=== PATIENT | male | born 2000 | race Two or more races ===

== ENCOUNTER 2021-06-19 22:10 | Inpatient (IN) | payer MEDICAID ==
[~2021-06-19] VITALS: Ht 175.3 cm; Wt 66.0 kg
--- NOTE | 2021-06-19 22:31 | NUR ---
PT ROOMED IN BED 14,. ASSUMED CARE OF PT
[2021-06-19 22:41] LABS: CLARITY,URINE CLEAR (Clear); COLOR,URINE YELLOW (Yellow); GLUCOSE, URINE NEGATIVE (Neg); KETONES,URINE NEGATIVE (Neg); LEUKOCYTE ESTERASE ,URINE NEGATIVE (Neg); NITRITES, URINE NEGATIVE (Neg); OCCULT BLOOD,URINE TRACE-LYSED (Neg); PROTEIN,URINE NEGATIVE (Neg); UROBILINOGEN,URINE 0.2 E.U/dL (0.2-1.0)
[2021-06-19 22:43] LABS: BASOPHILS % (AUTO) 0.4 % (0-1); EOSINOPHILS # (AUTO) 0.1 X10'3 (0-0.9); EOSINOPHILS % (AUTO) 0.9 % (0-6); HEMATOCRIT 45.3 % (42.0-52.0); HEMOGLOBIN 15.5 g/dl (14.0-17.9); LYMPHOCYTES # (AUTO) 1.1 X10'3 (1.1-4.8); LYMPHOCYTES % (AUTO) 11.2 % (21-51); MEAN CORPUSCULAR HEMOGLOBIN 30.3 PG (27.0-31.0); MEAN CORPUSCULAR HGB CONC 34.2 g/dL (33.0-36.5); MEAN CORPUSCULAR VOLUME 88.5 FL (78-98); MEAN PLATELET VOLUME 8.3 FL (7.4-10.4); MONOCYTES % (AUTO) 10.4 % (2-12); NEUTROPHILS # (AUTO) 7.6 X10'3 (1.8-7.7); NEUTROPHILS % (AUTO) 77.1 % (42-75); PLATELET COUNT 214 X10'3 (140-440); RED BLOOD COUNT 5.12 X10'6 (4.70-6.10); RED CELL DISTRIBUTION WIDTH 12.8 % (11.5-14.5); WHITE BLOOD COUNT 9.9 X10'3 (4.5-11.0)
[2021-06-19 22:48] LABS: UA COLLECTION TYPE CLN CATCH MIDSTREAM
[2021-06-19 22:49] LABS: ALANINE AMINOTRANSFERASE 34 U/L (12-78); ALBUMIN 4.1 G/DL (3.4-5.0); ALBUMIN/GLOBULIN RATIO 1.2 (1.1-1.5); ALKALINE PHOSPHATASE 90 IU/L (46-116); ANION GAP 8 (8-16); ASPARTATE AMINO TRANSFERASE 35 U/L (10-37); BILIRUBIN,TOTAL 0.3 MG/DL (0.1-1.0); BLOOD UREA NITROGEN 15 MG/DL (7-18); BUN/CREATININE RATIO 14.4 (5.4-32.0); CALCIUM 9.2 MG/DL (8.5-10.1); CHLORIDE 102 MMOL/L (99-107); CREATININE 1.04 MG/DL (0.60-1.10); GLUCOSE 126 MG/DL (70-104); LIPASE 90 U/L (73-393); POTASSIUM 3.3 MMOL/L (3.5-5.1); SODIUM 139 MMOL/L (135-145); TOTAL CARBON DIOXIDE 28.7 MMOL/L (24-32); TOTAL PROTEIN 7.4 G/DL (6.4-8.2); eGFR 90 ML/MIN
[2021-06-19 22:57] LABS: MUCUS STRANDS FEW /LPF (Neg); SQUAMOUS EPITHELIAL CELL,UR FEW /LPF (FEW)
[2021-06-19 22:58] LABS: BACTERIA,URINE NONE SEEN /HPF (Neg); RBC,URINE 0-2 /HPF (0-2); WBC,URINE 0-4 /HPF (0-4)
[2021-06-20] VITALS (22 sets, daily range): BP systolic 117–148; BP diastolic 51–94
[2021-06-20] MEDS ORDERED: piperacillin/tazo 3.375gm/50ml 50 ML IV STA (00:58)
[2021-06-20] MEDS ORDERED: NO HOME MEDS (03:05)
--- NOTE | 2021-06-20 03:45 | NUR ---
Received report from PARAG Canas. Awaiting patient arrival to the floor
--- NOTE | 2021-06-20 04:00 | NUR ---
Patient in shower
[2021-06-20] MEDS ORDERED: HYDROcodone/acetaminophen 10/325mg tab PO PRN ×2 (04:20→14:20)
[2021-06-20] MEDS ORDERED: magnesium Cl slow-release 64mg tablet PO PRN (04:20)
[2021-06-20] MEDS ORDERED: magnesium 4gm in 100ml NS 100 ML IV PRN (04:20)
[2021-06-20] MEDS ORDERED: HYDROcodone/acetaminophen 5mg/325mg tablet PO PRN (04:20)
[2021-06-20] MEDS ORDERED: acetaminophen 325mg tablet PO PRN ×2 (04:20)
[2021-06-20] MEDS ORDERED: potassium Cl 20 mEq SR tablet PO PRN ×2 (04:20)
[2021-06-20] MEDS ORDERED: magnesium hydroxide 30ml (MOM) UD suspension PO PRN (04:20)
[2021-06-20] MEDS ORDERED: potassium CL 10mEq/100ml bag 100 ML IV PRN (04:20)
[2021-06-20] MEDS ORDERED: ondansetron 4mg rapidly disintigrating tab PO PRN (04:20)
[2021-06-20] MEDS ORDERED: ondansetron/PF 4mg/2ml inj IV PRN ×2 (04:20→11:50)
[2021-06-20] MEDS ORDERED: bisacodyl 10mg suppository rectal RC PRN (04:20)
[2021-06-20] MEDS ORDERED: acetaminophen 650mg rectal suppository RC PRN (04:20)
[2021-06-20] MEDS ORDERED: HYDROmorphone inj. 0.5 MG/0.5 ML DISP.SYRIN IV PRN (04:20)
[2021-06-20] MEDS ORDERED: morphine 2 MG/ML inj. syringe IV PRN ×3 (04:20→11:50)
[2021-06-20] MEDS ORDERED: diphenhydrAMINE 25mg capsule PO PRN (04:20)
[2021-06-20] MEDS ORDERED: mag hydrox/Alum hydrox/simeth 30ml oral suspension PO PRN (04:20)
[2021-06-20] MEDS ORDERED: magnesium 2GM in 50ml NS 50 ML IV PRN (04:20)
[2021-06-20] MEDS ORDERED: diphenhydrAMINE 50 mg/ml inj IV PRN (04:20)
--- NOTE | 2021-06-20 04:20 | NUR ---
Patient back to room 355B, resting comfortably in bed in no apparent distress on room air. Call light and items of frequent use within reach. Will continue to monitor.
[2021-06-20] MEDS: dextrose 5%-1/2 normal saline 1,000 ML IV SCH ×2 (04:32→14:20)
--- NOTE | 2021-06-20 06:28 | NUR ---
Problems reprioritized. Patient report given, questions answered & plan of care reviewed with PARAG Wood.
[2021-06-20] MEDS: pantoprazole 40MG/NS 100ML BAG 100 ML IV SCH (07:17)
[2021-06-20] MEDS: piperacillin/tazo 4.5gm/100ml 100 ML IV SCH ×2 (07:22→16:00)
[2021-06-20 07:25] LABS: MAGNESIUM 1.8 MG/DL (1.5-2.4); POTASSIUM 3.8 MMOL/L (3.5-5.1)
[2021-06-20] MEDS: docusate sod 100mg capsule PO SCH ×2 (08:00→20:15)
[2021-06-20] MEDS: K and/or MAG REPLACEMENT MC SCH ×2 (08:10→20:00)
[2021-06-20 09:46] LABS: BASOPHILS % (AUTO) 0.2 % (0-1); EOSINOPHILS % (AUTO) 0.1 % (0-6); HEMATOCRIT 45.1 % (42.0-52.0); HEMOGLOBIN 15.5 g/dl (14.0-17.9); LYMPHOCYTES # (AUTO) 0.9 X10'3 (1.1-4.8); LYMPHOCYTES % (AUTO) 8.2 % (21-51); MEAN CORPUSCULAR HEMOGLOBIN 30.4 PG (27.0-31.0); MEAN CORPUSCULAR HGB CONC 34.4 g/dL (33.0-36.5); MEAN CORPUSCULAR VOLUME 88.3 FL (78-98); MEAN PLATELET VOLUME 8.3 FL (7.4-10.4); MONOCYTES # (AUTO) 1.1 X10'3 (0-0.9); MONOCYTES % (AUTO) 9.8 % (2-12); NEUTROPHILS % (AUTO) 81.7 % (42-75); PLATELET COUNT 213 X10'3 (140-440); RED BLOOD COUNT 5.11 X10'6 (4.70-6.10); RED CELL DISTRIBUTION WIDTH 12.9 % (11.5-14.5)
[2021-06-20 10:21] LABS: ALANINE AMINOTRANSFERASE 39 U/L (12-78); ALBUMIN 3.9 G/DL (3.4-5.0); ALBUMIN/GLOBULIN RATIO 1.3 (1.1-1.5); ALKALINE PHOSPHATASE 77 IU/L (46-116); ANION GAP 12 (8-16); ASPARTATE AMINO TRANSFERASE 26 U/L (10-37); BILIRUBIN,TOTAL 0.7 MG/DL (0.1-1.0); BLOOD UREA NITROGEN 9 MG/DL (7-18); BUN/CREATININE RATIO 11.5 (5.4-32.0); CALCIUM 8.9 MG/DL (8.5-10.1); CHLORIDE 100 MMOL/L (99-107); CREATININE 0.78 MG/DL (0.60-1.10); GLUCOSE 109 MG/DL (70-104); POTASSIUM 3.6 MMOL/L (3.5-5.1); SODIUM 138 MMOL/L (135-145); TOTAL CARBON DIOXIDE 25.9 MMOL/L (24-32); TOTAL PROTEIN 6.8 G/DL (6.4-8.2); eGFR > 90 ML/MIN
[2021-06-20] MEDS ORDERED: hydrALAZINE 20mg/ml inj. IV PRN (11:50)
[2021-06-20] MEDS ORDERED: morphine 4 MG/ML inj SYRINge IV PRN (11:50)
[2021-06-20] MEDS ORDERED: labetalol 20mg/4ml (5mg/ml) syringe IV PRN (11:50)
[2021-06-20] MEDS ORDERED: fentaNYL/PF 50MCG/1 ML 2ML syringe IV PRN ×2 (11:50)
[2021-06-20] MEDS ORDERED: ringers solution, lacted 1,000 ML IV SCH (11:50)
[2021-06-20] MEDS ORDERED: BUPIVAcaine/PF 2.5mg/ml (0.25%) 10ml vial ONE (12:27)
[2021-06-20] MEDS ORDERED: propofol inj 20 ML IV ONE (13:24)
[2021-06-20] MEDS ORDERED: midazolam 1 mg/ML 2ml injection ONE (13:30)
[2021-06-20] MEDS ORDERED: fentaNYL/PF 50MCG/1 ML 2ML syringe ONE (13:30)
[2021-06-20] MEDS ORDERED: ondansetron/PF 4mg/2ml inj ONE (13:37)
[2021-06-20] MEDS ORDERED: ketorolac trometh. 30mg/ml inj. IV PRN (14:20)
--- NOTE | 2021-06-20 14:31 | NUR ---
Received from OR via BED, accompanied by Anesthesiologist YANETH and report given by Anesthesiolgist. PT. ARRIVED ON O2 VIA MASK 10 L. ORAL AIRWAY. AROUSABLE. MOVES ALL EXTREMITIES. PULSES PALPABLE, 3 LARGE BANDAIDS ON ABD. CDI. DENIES PAIN. LR INFUSING R. AC 20 G INFUSING AT 100 ML/HR. SCDS. Addendum: 06/20/21 at 1459 by Theresa Hancock RN Amended: Links added.
[2021-06-20] MEDS ORDERED: acetaminophen 1,000mg/100ml IV 100 ML IV ONE (14:40)
--- NOTE | 2021-06-20 15:22 | NUR ---
TYLENOL INFUSING ORDERED. PT. CONTINUES TO HAVE COUGHING SPASMS. UPON WAKING WITH ORAL AIRWAY, PT. HAD DIFFICULT TIME CLEARING AIRWAY. AIRWAY REMOVED 1450, ENCOURAGED TO COUGH. SUCTIONED, ENCOURAGED TO SPIT. O2 AT 10L VIA MASK BUT PT. KEPT REMOVING MASK TO COUGH. SPORADIC BOUTS OF COUGHING CONTINUE. PT. TOLERATING BETTER ONCE AWAKE. CONTINUES TO DENY PAIN. RESTING COMFORTABLY. Addendum: 06/20/21 at 1528 by Theresa Hancock RN Amended: Links added.
--- NOTE | 2021-06-20 15:51 | NUR ---
REPORT CALLED TO JEAN TUTTLE. ALL DC CRITERIA FOR SURGICAL FLOOR MET. VSS. PT. TOLERATING FLUIDS. IV IN R. AC 20 G WITH LR INFUSING AT 100ML/HR. 3 LARGE BANDAIDS ON ABD. CDI. PT. DENIES PAIN. PT. HAS SPORADIC BOUTS OF COUGHING. SIPS OF FLUID HELP WITH ANY DISCOMFORT. ANESTHESIA AWARE. O2 VIA NC AT 2 L FOR COMFORT AND TIMES OF SLEEPING. ALL QUESTIONS ANSWERED. BED IN LOWEST POSITION. CALL LIGHT IN REACH. Addendum: 06/20/21 at 1611 by Theresa Hancock RN Amended: Links added.
--- NOTE | 2021-06-20 18:04 | NUR ---
Patient in room [facility] 355. I have received report from PARAG Wood and had the opportunity to ask questions and assume patient care.
--- NOTE | 2021-06-20 19:30 | NUR ---
Pt arrived back from surgery around 1600. Pt was started on post op vitals around 1930 when discovered there was no record of post op vitals recorded from earlier shift. distribution sales representative, Raffi nava.
--- NOTE | 2021-06-20 20:35 | NUR ---
Spoke with pharmacist Kevin told him pt Zosyn was hung at 1600 but was not running. Advised me to give next scheduled Zosyn at midnight, lock master, Raffi nava.
[2021-06-20] MEDS ORDERED: temazepam 15mg capsule PO PRN (21:00)
[2021-06-21] VITALS: BP 119/69
[2021-06-21] MEDS: dextrose 5%-1/2 normal saline 1,000 ML IV SCH ×2 (00:20→02:08)
[2021-06-21] MEDS: piperacillin/tazo 4.5gm/100ml 100 ML IV SCH ×2 (00:49→07:48)
[2021-06-21 04:00] VITALS: BP 106/78
--- NOTE | 2021-06-21 06:19 | NUR ---
Problems reprioritized. Patient report given, questions answered & plan of care reviewed with PARAG Espinosa.
--- NOTE | 2021-06-21 06:27 | NUR ---
Patient in room [facility] 355. I have received report from PARAG HUMPHRIES and had the opportunity to ask questions and assume patient care.
[2021-06-21 07:02] LABS: BASOPHILS % (AUTO) 0 % (0-1); EOSINOPHILS % (AUTO) 0 % (0-6); HEMATOCRIT 41.5 % (42.0-52.0); HEMOGLOBIN 14.6 g/dl (14.0-17.9); LYMPHOCYTES # (AUTO) 0.7 X10'3 (1.1-4.8); LYMPHOCYTES % (AUTO) 6.9 % (21-51); MEAN CORPUSCULAR HEMOGLOBIN 30.7 PG (27.0-31.0); MEAN CORPUSCULAR HGB CONC 35.1 g/dL (33.0-36.5); MEAN CORPUSCULAR VOLUME 87.5 FL (78-98); MEAN PLATELET VOLUME 8.3 FL (7.4-10.4); MONOCYTES # (AUTO) 0.9 X10'3 (0-0.9); NEUTROPHILS # (AUTO) 9.2 X10'3 (1.8-7.7); NEUTROPHILS % (AUTO) 85.1 % (42-75); PLATELET COUNT 204 X10'3 (140-440); RED BLOOD COUNT 4.75 X10'6 (4.70-6.10); RED CELL DISTRIBUTION WIDTH 13.2 % (11.5-14.5); WHITE BLOOD COUNT 10.8 X10'3 (4.5-11.0)
[2021-06-21 07:07] LABS: ALANINE AMINOTRANSFERASE 29 U/L (12-78); ALBUMIN 3.2 G/DL (3.4-5.0); ALBUMIN/GLOBULIN RATIO 0.9 (1.1-1.5); ALKALINE PHOSPHATASE 66 IU/L (46-116); ANION GAP 6 (8-16); ASPARTATE AMINO TRANSFERASE 19 U/L (10-37); BILIRUBIN,TOTAL 0.7 MG/DL (0.1-1.0); BLOOD UREA NITROGEN 10 MG/DL (7-18); BUN/CREATININE RATIO 12.3 (5.4-32.0); CALCIUM 8.5 MG/DL (8.5-10.1); CHLORIDE 103 MMOL/L (99-107); CREATININE 0.81 MG/DL (0.60-1.10); GLUCOSE 129 MG/DL (70-104); POTASSIUM 4.1 MMOL/L (3.5-5.1); SODIUM 138 MMOL/L (135-145); TOTAL PROTEIN 6.9 G/DL (6.4-8.2); eGFR > 90 ML/MIN
[2021-06-21] MEDS: docusate sod 100mg capsule PO SCH (07:48)
[2021-06-21] MEDS: K and/or MAG REPLACEMENT MC SCH (08:00)
[2021-06-21 08:14] VITALS: BP 124/56
[2021-06-21] MEDS: pantoprazole 40MG/NS 100ML BAG 100 ML IV SCH (11:19)
[2021-06-21] MEDS ORDERED: METR-159 PO (11:26)
[2021-06-21] MEDS ORDERED: OMEP20CA15 PO (11:28)
[2021-06-21] MEDS ORDERED: ACET-1008 PO (11:28)
[2021-06-21] MEDS ORDERED: IBUP-1985 PO (11:42)
[2021-06-21] MEDS ORDERED: CIPR-259 PO (11:42)
--- NOTE | 2021-06-21 11:59 | NUR ---
New prescriptions called in to [facility] on [address].
--- NOTE | 2021-06-21 12:22 | NUR ---
Patient is alert and oriented in no apparent acute distress. Discussed discharge instructions and new prescriptions with patient. Patient verbalizes understanding of all teaching with no questions.
--- NOTE | 2021-06-21 12:56 | NUR ---
Patient dc'd with all personal belongings escorted out in wheelchair by x1 staff and patient's transporter home.
== END 2021-06-21 12:45 | disposition home or self-care (01) | DRG 234 ==
LOC: ER 22:11 → ED HOLD 06-20 02:58 → SUR 3N 06-20 04:01
PROVIDERS: ADMIT Family Medicine; ATTEND Internal Medicine
PROC: 0DTJ4ZZ Resection of Appendix, Percutaneous Endoscopic Approach (ICD-10-PCS; principal; 2021-06-20 13:23)
DX: K35.80 Unspecified acute appendicitis (principal); E86.0 Dehydration; Z20.822 Contact with and (suspected) exposure to COVID-19; I10 Essential (primary) hypertension; E87.6 Hypokalemia; K38.1 Appendicular concretions
CPT/HCPCS: 36415; 74176; 80053; 81001; 83690; 83735; 84132; 84145; 85025; 87081; 87635; 96374; 99285; A4215; A4314; A4618; A7000; C9113; G0378; J0131; J2250; J2405; J2543; J2704; J3010; J3490; J7042; J7120